=== PATIENT | male | born 1965 | race Caucasian/White ===

== ENCOUNTER 2017-05-14 07:53 | Emergency (ER) | payer BC ==
[2017-05-14 08:22] VITALS: BP 119/76
--- NOTE | 2017-05-14 09:00 | UC ---
HPI Febrile Illness - HPI Summary HPI Summary: Per chemistry laboratory technician "ONSET THREE DAYS AGO WITH CHILLS, BODYACHES, HEADACHE. TWO DAYS AGO VOMITING AND DIARRHEA. KEEPING WATER AND MONY NEVIN DOWN,. DRY COUGH. FEELS LIKE "ITS HARD TO BREATH. DIZZY AND LIGHT HEADED. TEMP THIS AM 103.2. EYE HURT ALSO" Pt here with his , sudden oslinda whleif at work. unable to eat d/t nausea. body aches everywhere with joint aches. some diarrhea. no abd pain. no blood or melena. no dysruria. no prostate problems. no ST or ear aches. mild runny nose. no rash. no sick contacts. is here with him, she has no sx. he knows he is dehdrated b/c it is very hard for him to eat or drink b/c nausea. doesnt think he can give a urine sample. no syncope. has not had flu shot yet. PCP Rafiq ([facility]). Denies any medical problems other than uric acid kidney stones. no CAD or DM or HTN. - History of Current Complaint Chief Complaint: UCGeneralIllness Time Seen by Provider: 05/14/17 08:57 - Allergy/Home Medications Allergies/Adverse Reactions: Allergies Allergy/AdvReac Type Severity Reaction Status Date / Time No Known Allergies Allergy Verified 05/14/17 07:59 Home Medications: Home Medications Allopurinol TAB* [Zyloprim 100 MG TAB*] 100 mg PO DAILY 05/14/17 [History Confirmed 05/14/17] Ibuprofen TAB* [Advil TAB*] 400 mg PO Q6H PRN 05/14/17 [History Confirmed ] PMH/Surg Hx/FS Hx/Imm Hx Previously Healthy: Yes GI/ History: Kidney Stones - Surgical History Surgical History: Yes Surgery Procedure, Year, and Place: BACK SURGERY - Family History Known Family History: Positive: Cardiac Disease Negative: Diabetes - Social History Alcohol Use: Rare Substance Use Type: None Smoking Status (MU): Heavy Every Day Tobacco Smoker Type: Cigarettes Amount Used/How Often: 1 PPD Have You Smoked in the Last Year: Yes Household Exposure Type: Cigarettes Review of Systems Constitutional: Fever, Chills, Fatigue Skin: Negative Eyes: Negative ENT: Nasal Discharge Respiratory: Cough Cardiovascular: Negative Gastrointestinal: Diarrhea, Nausea Genitourinary: Negative Motor: Negative Neurovascular: Negative Musculoskeletal: Arthralgia, Myalgia, Other: - no joint swelling Neurological: Negative Psychological: Negative Is Patient Immunocompromised?: No All Other Systems Reviewed And Are Negative: Yes Physical Exam Triage Information Reviewed: Yes Appearance: Ill-Appearing - very pleasant, lying on exam table. Vital Signs: Initial Vital Signs Temp 98.5 F 05/14/17 08:01 Pulse 83 05/14/17 08:01 Resp 20 05/14/17 08:01 BP 119/76 05/14/17 08:01 Pulse Ox 97 05/14/17 08:01 Vital Signs Reviewed: Yes Eye Exam: Normal ENT: Positive: Hearing grossly normal, Pharyngeal erythema, Nasal drainage, TMs normal. Negative: Tonsillar swelling, Tonsillar exudate, Muffled/hoarse voice Dental Exam: Normal Neck exam: Normal Neck: Positive: Supple, Nontender, No Lymphadenopathy Respiratory: Positive: Normal breath sounds, No respiratory distress, No accessory muscle use, Wheezing - slight left suprascapular wheezing initially only that resolved. Negative: Crackles, Rhonchi, Stridor Cardiovascular Exam: Normal Cardiovascular: Positive: RRR, No Murmur, Pulses Normal, Brisk Capillary Refill Abdomen Description: Positive: Nontender, Soft Bowel Sounds: Positive: Present Musculoskeletal Exam: Normal Musculoskeletal: Positive: Other: - ambulates to xray briskly w/o distress Neurological Exam: Normal Psychological Exam: Normal Skin Exam: Normal Course/Dx - Course Course Of Treatment: CXR today - LML or GEORGE pneumonia. Discussed need to rpt CXR in 4-6 wks to r/o underlying mass. advises strongly to stop smoking. SG 1.010 - doing well with hydration and enc to continue - Febrile Illness Differential Diagnoses: Abd. Infection, GI Disease, Pneumonia, Sepsis, Other: - influenza - Diagnoses Clinic Provider Diagnoses: pneumonia, nausea Discharge - Discharge Plan Condition: Stable Disposition: HOME Prescriptions: Albuterol HFA INHALER* [Ventolin HFA Inhaler*] 2 puff INH Q4H PRN #1 mdi PRN Reason: Cough Amoxicillin/Clavulanate TAB* [Augmentin TAB 875*] 875 mg PO BID #20 tab Methylprednisolone [Medrol Dosepak 4 MG*] 4 mg PO DAILY #1 heidi Ondansetron ODT TAB* [Zofran 4 MG Odt TAB*] 4 mg PO Q6H PRN #15 tab.odt PRN Reason: Nausea Patient Education Materials: Pneumonia (ED) Referrals: Rafiq LANG,Norm Cadet [Primary Care Provider] - 2 Days Additional Instructions: -Make sure to take a probiotic daily while on antibiotics to help prevent a potential complication of antibiotic use called c diff. Some well known brands that can be found OTC are florastor, align and [employer]. Make sure to complete the entire prescription unless advised otherwise by your health care provider. -make sure to get a repeat chest xray in 4-6 wks. Call your doctor if your symptoms worsen. -make sure to drink plenty of water and gatorade. -we have given you a copy of the chest xray report and your doctor can call for the records from today's visit.
[2017-05-14] MEDS ORDERED: Ondansetron ODT TAB* 4 MG PO ONE (09:20)
--- NOTE | 2017-05-14 09:34 | RAD ---
INDICATION: Fever and cough COMPARISON: None TECHNIQUE: PA and lateral views of the chest were obtained. FINDINGS: The heart and mediastinum are normal in size and contour. There is density overlying the left upper lobe on the PA chest x-ray. In the lateral view the consolidation is seen abutting the fissure. Air bronchograms are noted. Visualized bones are normal for the patient's age. There is no radiographic evidence of free air beneath the diaphragm IMPRESSION: CHEST X-RAY FINDINGS ARE MOST CONSISTENT WITH LEFT UPPER LOBE PNEUMONIA. A FOLLOW-UP CHEST X-RAY AFTER AN APPROPRIATE COURSE OF THERAPY IS ADVISED TO ASCERTAIN RESOLUTION.
== END 2017-05-14 10:12 | disposition home or self-care (01) ==
LOC: UCCORT 07:53
DX: J18.9 Pneumonia, unspecified organism (principal); R11.0 Nausea; F17.210 Nicotine dependence, cigarettes, uncomplicated
CPT/HCPCS: 71020; 81003; 87502; 99202; A9270-GY; G0463